=== PATIENT | male | born 1955 | race Caucasian/White ===

== ENCOUNTER → 2021-07-02 | Outpatient (REF) | payer MEDICARE, OTHER | LOC: M LAB REF 17:22 | PROVIDERS: ATTEND Dermatology | DX: L57.8 Other skin changes due to chronic exposure to nonionizing radiation (principal); D23.72 Other benign neoplasm of skin of left lower limb, including hip ==

== ENCOUNTER → 2024-06-17 | Outpatient (REF) | payer MEDICARE, OTHER | LOC: M SFHCDERM 08:03 | PROVIDERS: ATTEND Physician Assistant | DX: D23.0 Other benign neoplasm of skin of lip (principal) ==